=== PATIENT | female | born 1975 | race African-American/Black ===

== ENCOUNTER 2019-03-27 17:56 | Emergency (ER) | payer MEDICAID ==
[~2019-03-27] VITALS: Ht 160 cm; Wt 65.8 kg
[2019-03-27 18:15] VITALS: BP 108/63
--- NOTE | 2019-03-27 18:15 | NUR ---
ED Nurse Note: PT FROM HOME CAME IN DUE TO ABD. PAIN WITH HEAVY BRIGHT RED VAGINAL BLEEDING WITH CLOTS. PT STATES THAT SHE HAS IRREGULAR MENSTRUAL PERIOD SINCE OCT 2018. DENIES DIZZINESS. AAO X4, AMBULATORY AND SPEAKS IN CLEAR SENTENCES. VSS.
--- NOTE | 2019-03-27 18:52 | Emergency Room Report ---
History of Present Illness General Chief Complaint: Abdominal Pain Source: Patient Present Illness HPI Patient presents with heavy vaginal bleeding. 2 months ago she had a ultrasound that showed she had 3 fibroids. She is also complaining about lower abdominal pain. She is mainly here to have the pain treated although she says her hemoglobin is been down in the 6 region. She is refused transfusions in the past. She does feel weakness. There is no dysuria. Last menstrual period was February 27. She does not believe she is . She did not tolerate iron pills. Not taking any vitamins at this time. No vaginal discharge. No fevers, chills, sore throat, chest pain, palpitations, nausea, vomiting, diarrhea, dysuria, shortness of breath, joint pain, rashes, depression, anxiety , visual changes, headache. Allergies: Coded Allergies: No Known Allergies (Unverified , 03/27/19) Patient History Past Medical History: see triage record Social History: Reports: drug use - THC; Denies: smoking Social History Narrative At home Last Menstrual Period: 02/27/19 Now: No Reviewed Nursing Documentation: PMH: Agreed; PSxH: Agreed Nursing Documentation-PMH Past Medical History: No Stated History Review of Systems All Other Systems: negative except mentioned in HPI Physical Exam Vital Signs Date Time Temp Pulse Resp B/P (MAP) Pulse Ox O2 Delivery O2 Flow Rate FiO2 03/27/19 18:05 98.1 73 20 116/47 (70) 100 Room Air Sp02 EP Interpretation: reviewed, normal General Appearance: well appearing, no apparent distress, GCS 15 Head: normocephalic, atraumatic Eyes: bilateral eye PERRL, bilateral eye conjunctivae pale ENT: moist mucus membranes Neck: supple Respiratory: lungs clear, normal breath sounds Cardiovascular #1: regular rate, rhythm Cardiovascular #2: 2+ radial (R) Gastrointestinal: normal inspection, normal bowel sounds, no mass, non- distended, no guarding, no rebound, tenderness - Suprapubic Genitourinary: no CVA tenderness, deferred - Recent ultrasound Musculoskeletal: back normal, gait/station normal, normal range of motion Neurologic: alert, oriented x3, grossly normal Psychiatric: mood/affect normal Skin: pallor Medical Decision Making Diagnostic Impression: Primary Impression: Dysfunctional uterine bleeding Additional Impressions: h/o fibroids Anemia Qualified Codes: D50.0 - Iron deficiency anemia secondary to blood loss ( chronic) ER Course Patient presents with suprapubic pain with a history of fibroids and anemia. Frontal includes UTI, fibroid pain, significant anemia, amongst others. Evaluation with labs and urinalysis. Treatment with IV hydration and analgesia. Due to the fact that she has a history of recent ultrasound with the 3 fibroids ultrasound is not indicated at this time. She might need to be transfused if her hemoglobin is less than 7. Blood pressure is low and the patient will be treated with IV hydration. She is not tachycardic. She does not appear toxic. negative. Urinalysis clear. Hemoglobin 8.9. CMP unremarkable. Patient improved with treatment of pain. 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 Patient stable for outpatient observation and treatment. Laboratory Tests Test 03/27/19 18:15 03/27/19 18:50 03/27/19 19:45 03/27/19 19:50 White Blood Count 9.1 K/UL (4.8-10.8) Red Blood Count 3.91 M/UL (4.20-5.40) L Hemoglobin 8.9 G/DL (12.0-16.0) L Hematocrit 30.0 % (37.0-47.0) L Mean Corpuscular Volume 77 FL (80-99) L Mean Corpuscular Hemoglobin 22.6 PG (27.0-31.0) L Mean Corpuscular Hemoglobin Concent 29.5 G/DL (32.0-36.0) L Red Cell Distribution Width 16.4 % (11.6-14.8) H Platelet Count 353 K/UL (150-450) Mean Platelet Volume 5.1 FL (6.5-10.1) L Neutrophils (%) (Auto) 72.1 % (45.0-75.0) Lymphocytes (%) (Auto) 18.7 % (20.0-45.0) L Monocytes (%) (Auto) 7.0 % (1.0-10.0) Eosinophils (%) (Auto) 1.2 % (0.0-3.0) Basophils (%) (Auto) 1.0 % (0.0-2.0) Prothrombin Time 10.0 SEC (9.30-11.50) Prothrombin Time INR 0.9 (0.9-1.1) PTT 24 SEC (23-33) Sodium Level 139 MMOL/L (136-145) Potassium Level 3.4 MMOL/L (3.5-5.1) L Chloride Level 103 MMOL/L (98-107) Carbon Dioxide Level 28 MMOL/L (21-32) Anion Gap 8 mmol/L (5-15) Blood Urea Nitrogen 10 mg/dL (7-18) Creatinine 0.9 MG/DL (0.55-1.30) Estimate Glomerular Filtration Rate > 60 mL/min (>60) Glucose Level 142 MG/DL (74-106) H Calcium Level 9.0 MG/DL (8.5-10.1) Total Bilirubin 0.3 MG/DL (0.2-1.0) Aspartate Amino Transferase (AST) 13 U/L (15-37) L Alanine Aminotransferase (ALT) 12 U/L (12-78) Alkaline Phosphatase 41 U/L (46-116) L Total Protein 7.0 G/DL (6.4-8.2) Albumin 4.0 G/DL (3.4-5.0) Globulin 3.0 g/dL Albumin/Globulin Ratio 1.3 (1.0-2.7) Lipase 161 U/L (73-393) Lactic Acid Level 2.10 mmol/L (0.4-2.0) H 1.40 mmol/L (0.66-2.22) Urine Color Pale yellow Urine Appearance Clear Urine pH 6 (4.5-8.0) Urine Specific [place] 1.015 (1.005-1.035) Urine Protein Negative (NEGATIVE) Urine Glucose (UA) Negative (NEGATIVE) Urine Ketones Negative (NEGATIVE) Urine Blood 5+ (NEGATIVE) H Urine Nitrite Negative (NEGATIVE) Urine Bilirubin Negative (NEGATIVE) Urine Urobilinogen Normal MG/DL (0.0-1.0) Urine Leukocyte Esterase Negative (NEGATIVE) Urine RBC Tntc /HPF (0 - 2) H Urine WBC 0-2 /HPF (0 - 2) Urine Squamous Epithelial Cells Few /LPF (NONE/OCC) Urine Bacteria Occasional /HPF (NONE) Urine Mucus Many /LPF (NONE/OCC) H Urine HCG, Qualitative Negative (NEGATIVE) Urine Opiates Screen Negative (NEGATIVE) Urine Barbiturates Screen Negative (NEGATIVE) Phencyclidine (PCP) Screen Negative (NEGATIVE) Urine Amphetamines Screen Negative (NEGATIVE) Urine Benzodiazepines Screen Negative (NEGATIVE) Urine Cocaine Screen Negative (NEGATIVE) Urine Marijuana (THC) Screen Positive (NEGATIVE) H Last Vital Signs Date Time Temp Pulse Resp B/P (MAP) Pulse Ox O2 Delivery O2 Flow Rate FiO2 03/27/19 21:30 98.1 71 15 111/70 100 Room Air Status: improved Disposition: HOME, SELF-CARE Condition: Improved Scripts Ibuprofen* (MOTRIN*) 600 Mg Tablet 600 MG ORAL Q6H PRN for For Pain, #20 TAB 0 Refills Prov: Celestino Appiah MD 03/27/19 Tramadol Hcl* (ULTRAM*) 50 Mg Tablet 50 MG ORAL Q6H PRN for For Pain, #10 TAB 0 Refills Prov: Celestino Appiah MD 03/27/19 Vit #76/Iron,Carb/Fa (PRENATABS RX TABLET) 1 Each Tablet 1 EACH PO DAILY, #30 TAB 2 Refills Prov: Celestino Appiah MD 03/27/19 Celestino Appiah MD Mar 27, 2019 18:51
[2019-03-27] MEDS ORDERED: Ketorolac 30mg Inj IV ONE (19:00)
[2019-03-27 19:01] LABS: EOSINOPHILS % (AUTO) 1.2 % (0.0-3.0); HEMOGLOBIN 8.9 G/DL (12.0-16.0); LYMPHOCYTES % (AUTO) 18.7 % (20.0-45.0); MEAN CORPUSCULAR VOLUME 77 FL (80-99); NEUTROPHILS % (AUTO) 72.1 % (45.0-75.0); PLATELET COUNT 353 K/UL (150-450); RED BLOOD COUNT 3.91 M/UL (4.20-5.40); RED CELL DISTRIBUTION WIDTH 16.4 % (11.6-14.8); WHITE BLOOD COUNT 9.1 K/UL (4.8-10.8)
[2019-03-27 19:06] LABS: INR 0.9 (0.9-1.1)
--- NOTE | 2019-03-27 19:08 | NUR ---
HAND-OFF: Report given to TERESA SNIDER RN.
--- NOTE | 2019-03-27 19:10 | NUR ---
ED Nurse Note: patient resting in bed nad. vss. respirations even and unlabored.
[2019-03-27 19:11] LABS: ANION GAP 8 mmol/L (5-15); BLOOD UREA NITROGEN 10 mg/dL (7-18); CARBON DIOXIDE 28 MMOL/L (21-32); CHLORIDE 103 MMOL/L (98-107); CREATININE 0.9 MG/DL (0.55-1.30); POTASSIUM 3.4 MMOL/L (3.5-5.1); SODIUM 139 MMOL/L (136-145)
[2019-03-27 19:13] LABS: ALANINE AMINOTRANSFERASE 12 U/L (12-78); ALBUMIN/GLOBULIN RATIO 1.3 (1.0-2.7); ALKALINE PHOSPHATASE 41 U/L (46-116); ASPARTATE AMINO TRANSFERASE 13 U/L (15-37); BILIRUBIN,TOTAL 0.3 MG/DL (0.2-1.0)
--- NOTE | 2019-03-27 19:45 | NUR ---
ED Nurse Note: lactic reflex collected; sent down to lab.
--- NOTE | 2019-03-27 19:50 | NUR ---
ED Nurse Note: Urine collected; sent down to lab.
[2019-03-27 20:33] LABS: APPEARANCE,URINE CLEAR; BILIRUBIN, URINE NEGATIVE (NEGATIVE); COLOR,URINE PALE YELLOW; GLUCOSE, URINE (UA) NEGATIVE (NEGATIVE); KETONES,URINE NEGATIVE (NEGATIVE); LEUKOCYTE ESTERASE ,URINE NEGATIVE (NEGATIVE); NITRITE,URINE NEGATIVE (NEGATIVE); PH,URINE 6 (4.5-8.0); PROTEIN,URINE NEGATIVE (NEGATIVE); UROBILINOGEN,URINE NORMAL MG/DL (0.0-1.0)
[2019-03-27] MEDS ORDERED: PRENATABS RX T1 EACH PO (21:13)
[2019-03-27] MEDS ORDERED: TRAMADOL HCL50 MG ORAL (21:13)
[2019-03-27] MEDS ORDERED: IBUPROFEN600 MG ORAL (21:13)
[2019-03-27 21:30] VITALS: BP 111/70
--- NOTE | 2019-03-27 21:30 | NUR ---
ER DISCHARGE NOTE: Patient is cleared to be discharged per ERMD, pt is aox4, on room air, with stable vital signs. pt was given dc and prescription instructions, pt was able to verbalize understanding, pt id band and iv site removed without complications. pt is able to ambulate with steady gait. pt took all belongings.
== END 2019-03-27 21:30 | disposition home or self-care (01) ==
LOC: EMR 18:59
DX: N93.9 Abnormal uterine and vaginal bleeding, unspecified (principal); D50.0 Iron deficiency anemia secondary to blood loss (chronic); F12.90 Cannabis use, unspecified, uncomplicated
CPT/HCPCS: 36415; 80053; 80307; 81003; 81025; 83605; 83690; 85025; 85610; 85730; 86850; 86900; 86901; 96361; 96374; 96375; 99284; J1885; J2405